=== PATIENT | male | born 1975 | race Two or more races ===

== ENCOUNTER 2020-03-13 13:59 | Inpatient (IN) | payer MEDICAID, OTHER ==
[~2020-03-13] VITALS: Ht 172.7 cm; Wt 74.9 kg
[2020-03-13] MEDS ORDERED: SODIUM CHLORIDE 0.9% 1,000 ML IVB ONE (14:54)
[2020-03-13 16:15] LABS: Basophils # (auto) 0 10 ^3/uL (0-0.2); Eosinophils # (auto) 0 10 ^3/uL (0-0.8); Hematocrit 25.6 % (41.0-53.0); Hemoglobin 8.3 g/dL (13.5-17.5); Monocytes # (auto) 0.2 10 ^3/uL (0-1.3); Neutrophils # (auto) 0.8 10 ^3/uL (1.6-8.6)
[2020-03-13 16:17] LABS: Basophils % (auto) 0.9 % (0.0-2.0); Eosinophils % (auto) 1.9 % (0.0-7.0); Lymphocytes # (auto) 0.4 10 ^3/uL (0.4-5.4); Lymphocytes % (auto) 28.6 % (10.0-50.0); Mean Corpuscular Hemoglobin 30.1 pg (28.0-32.0); Mean Corpuscular Hgb Conc. 32.3 g/dL (32.0-36.0); Mean Corpuscular Volume 93.1 fL (80.0-100.0); Monocytes % (auto) 14.4 % (0.0-12.0); Neutrophils % (auto) 54.2 % (37.0-80.0); Platelet Count (auto) 64 10^3/uL (140-450); Red Blood Cells 2.75 10^6/uL (4.5-5.90)
[2020-03-13 16:26] LABS: White Blood Cell 1.5 10^3/uL (4.4-10.8)
[2020-03-13 16:31] LABS: Albumin 2.6 g/dL (3.4-5.0); Anion Gap 6 (5-15); Blood Alcohol < 3.0 mg/dL (0-5); Blood Urea Nitrogen 14 mg/dL (7-18); Carbon Dioxide 22 mmol/L (21-32); Chloride 112 mmol/L (98-107); Glucose 98 mg/dL (74-106); Magnesium 1.8 mg/dL (1.6-2.6); Potassium 3.7 mmol/L (3.5-5.1); Sodium 140 mmol/L (136-145)
[2020-03-13 16:34] LABS: Alanine Aminotransferase 20 U/L (16-61); Alkaline Phosphatase 172 U/L (45-117); Aspartate Aminotransferase 31 U/L (15-37); BUN/Creatinine Ratio 11.8; Bilirubin, Total 1.4 mg/dL (0.2-1.0); GFR African American 86 mL/min; GFR Non-African American 71 mL/min; Total Protein 6.7 g/dL (6.4-8.2)
[2020-03-13 16:48] LABS: INR 1.4 (0.9-1.15); Partial Thromboplastin Time 29.4 sec (23.0-31.2)
[2020-03-13] MEDS ORDERED: LORazepam 2MG/ML-1ML VIAL ONE (18:08)
[2020-03-13] MEDS: LORazepam 2MG/ML-1ML VIAL IV ONE ×2 (18:16→18:36)
[2020-03-13] MEDS ORDERED: ONDANSETRON HCL 4 MG/2 ML VIAL IV PRN (20:30)
[2020-03-13] MEDS ORDERED: ACETAMINOPHEN 325 MG TAB PO PRN (20:30)
[2020-03-13] MEDS ORDERED: TEMAZEPAM 15 MG CAP PO PRN (20:30)
[2020-03-13] MEDS ORDERED: DOCUSATE SOD 100 MG CAP PO PRN (20:30)
[2020-03-13] MEDS: SODIUM CHLORIDE 0.9% 1,000 ML IV SCH (22:32)
[2020-03-14] MEDS: LORazepam 2MG/ML-1ML VIAL IV PRN ×2 (01:30→03:39)
[2020-03-14] MEDS ORDERED: METOPROLOL TARTRATE 1MG/1ML-5ML VIAL IV ONE (02:00)
[2020-03-14 06:01] LABS: Basophils # (auto) 0 10 ^3/uL (0-0.2); Eosinophils # (auto) 0 10 ^3/uL (0-0.8); Hematocrit 25.6 % (41.0-53.0); Monocytes # (auto) 0.3 10 ^3/uL (0-1.3); Nucleated Red Blood Cells % 0.1 %; White Blood Cell 5.4 10^3/uL (4.4-10.8)
[2020-03-14 06:03] LABS: Basophils % (auto) 0.2 % (0.0-2.0); Hemoglobin 7.9 g/dL (13.5-17.5); Lymphocytes # (auto) 0.3 10 ^3/uL (0.4-5.4); Mean Corpuscular Hemoglobin 30.5 pg (28.0-32.0); Mean Corpuscular Hgb Conc. 30.8 g/dL (32.0-36.0); Mean Corpuscular Volume 99.1 fL (80.0-100.0); Monocytes % (auto) 6.5 % (0.0-12.0); Neutrophils # (auto) 4.7 10 ^3/uL (1.6-8.6); Neutrophils % (auto) 88.3 % (37.0-80.0); Platelet Count (auto) 72 10^3/uL (140-450); Red Blood Cells 2.59 10^6/uL (4.5-5.90)
[2020-03-14 06:24] LABS: BUN/Creatinine Ratio 12.7
[2020-03-14 06:32] LABS: Red Cell Distribution Width 21.4 % (11.8-14.3)
[2020-03-14 06:34] LABS: Calcium 5.3 mg/dL (8.5-10.1); Potassium 2.8 mmol/L (3.5-5.1)
[2020-03-14] MEDS ORDERED: POTASSIUM CHL 20MEQ/100ML 100 ML IV STA (08:23)
[2020-03-14] MEDS ORDERED: CALCIUM GLUC 4.65meq/50ml D5AE 50 ML IV ONE (08:30)
[2020-03-14] MEDS ORDERED: POTASSIUM CHL 20MEQ/100ML 100 ML IV ONE (10:15)
--- NOTE | 2020-03-14 11:00 | NUR ---
Telemetry admit from ER DO IGNACIO admitted to Telemetry unit after SBAR received. Patient resting in bed with eyes closed; respirations even and unlabored, no distress noted. Patient did not open eyes to verbal or to light painful stimulation. MD aware. Patient now on continuous telemetry monitoring and weighed by bed scale. Fall precautions in place with bed alarm on and call light within reach.
--- NOTE | 2020-03-14 11:05 | NUR ---
Seizure precautions in place per MD order Side rails padded. HOB >30 degrees. Suctioning set up at bedside.
--- NOTE | 2020-03-14 11:30 | NUR ---
swimming pool service technician at bedside
--- NOTE | 2020-03-14 12:00 | NUR ---
ELECTROENCEPHALOGRAM EEG COMPLETED AT BEDSIDE. PRIMARY RN KIAH TAYLOR.
--- NOTE | 2020-03-14 12:19 | NUR ---
was at bedside - Dr. Carter POC discussed with this RN.
--- NOTE | 2020-03-14 12:42 | NUR ---
GISELA discussed with Dr. Lewis
[2020-03-14 12:47] VITALS: BP 104/39
[2020-03-14] MEDS: SODIUM CHLORIDE 0.9% 1,000 ML IV SCH ×2 (13:10→18:46)
--- NOTE | 2020-03-14 13:30 | NUR ---
Urine specimen collected & sent to lab per MD order Urine specimen collected from navas catheter with aseptic technique.
[2020-03-14 13:42] LABS: Urine Bacteria FEW /hpf (None Seen); Urine Blood 1+ /uL (Negative); Urine Hyaline Cast FEW /lpf (0 - 2); Urine Specific Gravity 1.011 (1.001-1.035); Urine WBC 1 /hpf (0 - 3)
[2020-03-14 13:56] LABS: Alcohol, Urine < 3.0 mg/dL (0-10); Amphetamine Screen, Urine NEGATIVE (NEGATIVE); Barbiturate Scree,Urine NEGATIVE (NEGATIVE); Benzodiazephine Screen, Urine POSITIVE (NEGATIVE); Cannabinoid Screen, Urine NEGATIVE (NEGATIVE); Cocaine Screen, Urine NEGATIVE (NEGATIVE); Phencyclidine Screen, Urine NEGATIVE (NEGATIVE)
[2020-03-14 14:04] LABS: Opiate Scree,Urine NEGATIVE (NEGATIVE)
--- NOTE | 2020-03-14 14:45 | NUR ---
Patient resting in bed with eyes closed - repositioned for comfort Patient did not open eyes or respond to verbal commands during repositioning. Respirations even and unlabored, no distress noted. Saliva noted at the corner of patient's mouth. Suctioning provided. Patient did not open mouth to allow RN to suction. Call light within reach. Bed alarm on for safety. Seizure precautions in place.
--- NOTE | 2020-03-14 16:58 | NUR ---
Patient opened eyes and is looking around room Patient does not answer assessment questions. Patient is not following verbal commands. Safety instructions provided to the patient. Patient did not verbalize understanding. Patient stared at RN. Reoriented patient to surroundings and time. Fall precautions in place with bed in lowest locked position with call light within reach; bed alarm on for safety.
[2020-03-14 17:00] VITALS: BP 99/65
--- NOTE | 2020-03-14 18:53 | NUR ---
Closing note Patient resting in bed with eyes closed; respirations even and unlabored, no distress noted. Fall and seizure precautions are in place. Call light within reach, bed alarm on for safety. Patient makes grunting noise with painful stimuli. Patient has been non-verbal with this RN.
--- NOTE | 2020-03-14 19:28 | NUR ---
Care endorsed to TALON Kelley.
--- NOTE | 2020-03-14 19:40 | NUR ---
Opening Shift Note Assumed care of patient, asleep, not responsive to name. Seizure precautions in place. No S/S of distress/SOB or pain. Respirations even and unlabored. On 3L oxygen via nasal cannula. Rivas catheter patent and draining to gravity. Bed in lowest locked position, side rails up x2, call light within reach. Instructed on POC and to call for assist PRN, will continue to monitor for changes Q1hr and PRN.
[2020-03-14 20:00] VITALS: BP 112/73
[2020-03-14 22:00] VITALS: BP 112/73
[2020-03-15] MEDS: SODIUM CHLORIDE 0.9% 1,000 ML IV SCH ×2 (05:50→10:15)
[2020-03-15 06:00] VITALS: BP 129/88
[2020-03-15 06:19] LABS: Basophils # (auto) 0 10 ^3/uL (0-0.2); Basophils % (auto) 0.4 % (0.0-2.0); Eosinophils # (auto) 0 10 ^3/uL (0-0.8); Hemoglobin 9.3 g/dL (13.5-17.5); Lymphocytes # (auto) 0.4 10 ^3/uL (0.4-5.4); Lymphocytes % (auto) 9.3 % (10.0-50.0); Mean Corpuscular Hemoglobin 30.1 pg (28.0-32.0); Mean Corpuscular Volume 93.9 fL (80.0-100.0); Monocytes # (auto) 0.5 10 ^3/uL (0-1.3); Monocytes % (auto) 11.2 % (0.0-12.0); Neutrophils # (auto) 3.3 10 ^3/uL (1.6-8.6); Neutrophils % (auto) 79.1 % (37.0-80.0); Platelet Count (auto) 81 10^3/uL (140-450); Red Blood Cells 3.09 10^6/uL (4.5-5.90); White Blood Cell 4.2 10^3/uL (4.4-10.8)
[2020-03-15 06:27] LABS: Red Cell Distribution Width 21.1 % (11.8-14.3)
[2020-03-15 06:40] LABS: Potassium 3.8 mmol/L (3.5-5.1)
[2020-03-15 06:47] LABS: BUN/Creatinine Ratio 12.6
--- NOTE | 2020-03-15 08:00 | NUR ---
Morning note Patient resting in bed with eyes closed; respirations even and unlabored, no distress noted. Patient did not open eyes to verbal or to light painful stimulation. MD aware. Fall precautions in place with bed alarm on and call light within reach.
[2020-03-15 09:00] VITALS: BP 142/84
--- NOTE | 2020-03-15 09:30 | NUR ---
POC discussed with Dr. Sanya MARIA aware of patient's mental status and reported EEG result. Informed MD of safety concerns RE: diet. verbalized understanding. Order received and read back to verify.
--- NOTE | 2020-03-15 09:46 | NUR ---
Medication not available - called pharmacy Kenighatra JAVAD not available. Called pharmacy to notify. Medication to be sent to the unit per pharmacist.
--- NOTE | 2020-03-15 09:50 | NUR ---
was at bedside - Dr. Carter POC discussed with this RN.
--- NOTE | 2020-03-15 10:16 | NUR ---
Patient opened eyes and moved all 4 extremities Reoriented patient. Patient mumbled. Unable to understand what patient stated. Patient repositioned self and closed eyes again. Fall precautions in place with call light within reach and bed alarm on for safety.
--- NOTE | 2020-03-15 11:00 | NUR ---
Patient removed supplemental oxygen Education provided to patient on the need for supplemental oxygen through translation. Supplemental oxygen placed back on patient. Fall precautions in place with call light within reach; bed alarm on for safety.
[2020-03-15 13:00] VITALS: BP 141/91
--- NOTE | 2020-03-15 14:07 | NUR ---
Patient transferred to room 277A for safety Bed alarm on with call light within reach. All of patient's belongings transferred with the patient.
[2020-03-15] MEDS: LORazepam 2MG/ML-1ML VIAL IV PRN (14:22)
--- NOTE | 2020-03-15 14:27 | NUR ---
PRN IV Ativan administered per MD order for seizure-like activity neurodiagnostic tech was in process of applying electrodes to patient's head when seizure-like activity was noted by tech and this RN. Patient was minimally moving head in a back & forth motion while grinding his teeth. neurodiagnostic tech contacted Dr. Franklin to clarify if PRN IV Ativan was to be administered prior to EEG. MD instructed RN to administer medication per order. After administration of medication, patient was replying to questions from this RN and neurodiagnostic tech. Patient reports he does grind his teeth and he reports a history of seizures. Patient started to mumble when replying if he takes medication for seizures. Patient's eyes remained closed; respirations even and unlabored, no distress.
--- NOTE | 2020-03-15 14:30 | NUR ---
ELECTROENCEPHALOGRAM UNABLE TO COMPLETE REPEAT EEG. UPON SETUP, PATIENT REMOVED LEADS, GOWN, AND TRIED TO GET UP FROM BED. PRIMARY RN KIAH TAYLOR.
--- NOTE | 2020-03-15 14:37 | NUR ---
RE: Behavior Patient pulled electrodes off of head, attempted to remove IV access and started to remove hospital gown per technical systems architect. Patient would not allow tech to reapply electrodes. Tech to notify Dr. Franklin.
--- NOTE | 2020-03-15 14:40 | NUR ---
IVF held for safety - patient grabbing at IV line and attempting to exit the bed.
--- NOTE | 2020-03-15 15:30 | NUR ---
RE: Behavior Be alarm sounded. Patient attempting to exit the bed. Patient removed telemonitor, hospital gown and was attempting to remove IV access. Patient reoriented to surrounds and situation. Unable to understand what patient is stating d/t patient mumbling. Patient returned to supine position with no complications. Bed alarm on for safety. Call light within reach. Notified charger. investigation division captain verbalized understanding.
--- NOTE | 2020-03-15 16:09 | NUR ---
Contacted RE: elevated temperature Updated Dr. Segundo of patient's elevated temperature and seizure-like activity. MD verbalized understanding. MD to place order.
[2020-03-15] MEDS ORDERED: ACETAMINOPHEN IV 1000 MG/100ML (10MG/ML) IV ONE (16:15)
[2020-03-15 16:33] VITALS: BP 152/87
--- NOTE | 2020-03-15 16:46 | NUR ---
RE: Elevated temperature/pharmacy This RN notified by pharmacist that IV Tylenol cannot be administered for fever on this unit. That information is from pharmacy student per pharmacist. Pharmacist has relayed information to Dr. Segundo. This RN instructed by pharmacist to obtain approval for IV Tylenol to be administered for fever on this unit from Dr. Kearns. Temperature reassessed. 100.[address] Segundo updated on reassessment temperature. Ordered to continue to keep cooling measures in place and continue to monitor VS per md order. IV Tylenol administration to be reevaluated at a later time if fever develops again per Dr. Segundo.
--- NOTE | 2020-03-15 18:08 | NUR ---
Patient removed IV access to RHA Catheter intact. No bleeding noted. Patient attempting to exit the bed. Reoriented patient. Patient mumbled. Unable to understand patient. Bed alarm on for safety. Call light within reach. IV access to the LHA secured with mesh netting.
--- NOTE | 2020-03-15 18:41 | NUR ---
Patient removed telemonitor & attempting to remove IV access to LHA Patient removed supplemental oxygen. Mesh netting in place to the LHA. Soft mittens placed to bilateral hands. Reoriented patient to situation and surroundings. Patient stated "K". Supplemental oxygen placed back on patient. Respirations even and unlabored, no distress noted. Call light within reach; bed alarm on for safety. Staff member at bedside for safety.
--- NOTE | 2020-03-15 19:10 | NUR ---
Care endorsed to TALON Figueroa.
--- NOTE | 2020-03-15 19:50 | NUR ---
OPEN NOTE assumed care of pt, upon entering room pt has sitter at bedside. pt on 2L no distress noted. pt eyes are closed, breathing is even and unlabored. pt does not respond to verbal cues, but does open eyes spontaneously. pt does not appear to be in any discomfort. pt has navas in place, secured, below the waist and draining. pt rails are padded. call light in reach. bed locked, low and 2x rails up. this nurse to round q1hr and prn.
[2020-03-15 21:53] VITALS: BP 135/83
[2020-03-16 04:51] VITALS: BP 148/82
[2020-03-16 05:35] LABS: Basophils # (auto) 0 10 ^3/uL (0-0.2); Basophils % (auto) 0.3 % (0.0-2.0); Eosinophils # (auto) 0 10 ^3/uL (0-0.8); Eosinophils % (auto) 0.8 % (0.0-7.0); Hematocrit 30.6 % (41.0-53.0); Hemoglobin 10.1 g/dL (13.5-17.5); Lymphocytes # (auto) 0.7 10 ^3/uL (0.4-5.4); Lymphocytes % (auto) 16.1 % (10.0-50.0); Mean Corpuscular Hemoglobin 30.5 pg (28.0-32.0); Mean Corpuscular Hgb Conc. 32.9 g/dL (32.0-36.0); Mean Corpuscular Volume 92.5 fL (80.0-100.0); Monocytes # (auto) 0.5 10 ^3/uL (0-1.3); Monocytes % (auto) 12.7 % (0.0-12.0); Neutrophils % (auto) 70.1 % (37.0-80.0); Nucleated Red Blood Cells % 0.1 %; Platelet Count (auto) 89 10^3/uL (140-450); Red Blood Cells 3.31 10^6/uL (4.5-5.90); White Blood Cell 4.2 10^3/uL (4.4-10.8)
[2020-03-16 05:52] LABS: Red Cell Distribution Width 20.9 % (11.8-14.3)
[2020-03-16 05:57] LABS: Potassium 3.8 mmol/L (3.5-5.1)
[2020-03-16 06:01] LABS: BUN/Creatinine Ratio 11.1; Calcium 8.2 mg/dL (8.5-10.1)
--- NOTE | 2020-03-16 07:50 | NUR ---
Morning note Patient resting in bed with even and unlabored respirations, no distress noted. Instructed patient on POC, fall precautions and to call for assistance as needed. Patient unable to comprehend due to mental status; patient is A&O to self. Fall precautions in place with call light within reach; bed alarm on for safety. Staff member at bedside for safety.
[2020-03-16 09:00] VITALS: BP 139/74
--- NOTE | 2020-03-16 09:10 | NUR ---
Medication not available - called pharmacy Alvara JAVAD not available. Called pharmacy to notify. Medication to be sent to the unit per pharmacist per sissy Meeks.
--- NOTE | 2020-03-16 10:13 | NUR ---
Complete bed linen change - cooling measures in place Patient did not follow verbal commands. Patient did not assist staff with turning process. Patient's speech is inappropriate to situation and surroundings. Reoriented patient to situation and surroundings. Soft mitten to the LHA removed. Soft mitten to the RHA remains in place. Respirations even and unlabored, no distress noted. Staff member at bedside for safety.
--- NOTE | 2020-03-16 11:16 | NUR ---
Patient resting in bed with eyes closed Respirations even and unlabored, no distress noted. No teeth grinding heard. No body or head shaking noted. Call light within reach. Bed alarm on for safety.
--- NOTE | 2020-03-16 11:34 | NUR ---
POC discussed with Dr. Segundo Addendum: 03/16/20 at 1135 by Laura De Santiago RN Notified MD of patient's elevated temperature and cooling measures in place. MD verbalized understanding.
[2020-03-16 13:00] VITALS: BP 134/91
--- NOTE | 2020-03-16 13:10 | NUR ---
ASSUMED CARE ASSUMED CARE OF PATIENT, REPORT RECEIVED FROM TALON DUPONT
--- NOTE | 2020-03-16 13:25 | NUR ---
Care endorsed to TALON Weaver. Patient resting in bed with even and unlabored respirations, no distress noted. Fall precautions in place with call light within reach; bed alarm on for safety. Staff member at bedside for safety.
--- NOTE | 2020-03-16 13:46 | NUR ---
ELECTROENCEPHALOGRAM UNABLE TO COMPLETE EEG. PT UNCOOPERATIVE AND NOT FOLLOWING DIRECTIONS TO BE STILL FOR TEST.
[2020-03-16] MEDS: LORazepam 2MG/ML-1ML VIAL IV PRN (14:39)
[2020-03-16] MEDS: SODIUM CHLORIDE 0.9% 1,000 ML IV SCH (15:10)
--- NOTE | 2020-03-16 16:45 | NUR ---
TEMP PATIENT RUNNING TEMP 101.1. EMAR HAS TYLENOL PO. PATIENT NPO. SPOKE WITH DR SORENSEN. NEW ORDERS RECEIVED/WILL CARRY OUT. WILL CONTINUE TO MONITOR
[2020-03-16 17:00] VITALS: BP 149/85
--- NOTE | 2020-03-16 17:23 | NUR ---
COVID [facility] COVID SWAB WALKED TO LAB BY TALON HOUSTON PER PROTOCOL
[2020-03-16] MEDS: ACETAMINOPHEN 325 MG RECT SUPP PR PRN (17:35)
--- NOTE | 2020-03-16 18:30 | NUR ---
TEMP REASSESSMENT 99.6. COOLING MEASURES IN PLACE. WILL CONTINUE TO MONITOR
--- NOTE | 2020-03-16 19:49 | NUR ---
open note assumed care of pt, upon entering room pt awake and alert. pt on 2L nc breathing is even and unlabored, no s/s distress observed. sitter at bedside. pt nodded to indicate 'yes' when asked by this nurse if he was doing okay. pt oriented to this nurse, and updated on plan of care, to which he had no response. pt has navas in place, secured, below the waist and draining. pt bed locked, low and 2x padded rails up. call light in reach, this nurse to round q1hr and prn. sitter and pt encouraged to call as needed.
[2020-03-16 22:00] VITALS: BP 134/84
--- NOTE | 2020-03-16 22:30 | NUR ---
Temp 100.3f, cooling measures instituted. pt does not appear to be in any distress.
--- NOTE | 2020-03-16 23:30 | NUR ---
temp 100.1f no distress noted or expressed.
--- NOTE | 2020-03-17 01:28 | NUR ---
temp 100.6f tylenol suppository administered. no distress noted or expressed. will continue to monitor.
[2020-03-17] MEDS: ACETAMINOPHEN 325 MG RECT SUPP PR PRN (01:30)
[2020-03-17 05:00] VITALS: BP 137/86
[2020-03-17 06:38] LABS: Basophils # (auto) 0 10 ^3/uL (0-0.2); Basophils % (auto) 0.4 % (0.0-2.0); Eosinophils # (auto) 0 10 ^3/uL (0-0.8); Eosinophils % (auto) 1.2 % (0.0-7.0); Hematocrit 30.6 % (41.0-53.0); Hemoglobin 9.8 g/dL (13.5-17.5); Lymphocytes # (auto) 0.8 10 ^3/uL (0.4-5.4); Lymphocytes % (auto) 22.2 % (10.0-50.0); Mean Corpuscular Hemoglobin 29.8 pg (28.0-32.0); Mean Corpuscular Hgb Conc. 32.1 g/dL (32.0-36.0); Monocytes # (auto) 0.5 10 ^3/uL (0-1.3); Monocytes % (auto) 13.8 % (0.0-12.0); Neutrophils # (auto) 2.2 10 ^3/uL (1.6-8.6); Neutrophils % (auto) 62.4 % (37.0-80.0); Nucleated Red Blood Cells % 0.1 %; Platelet Count (auto) 79 10^3/uL (140-450); Red Blood Cells 3.29 10^6/uL (4.5-5.90); White Blood Cell 3.5 10^3/uL (4.4-10.8)
[2020-03-17 06:59] LABS: BUN/Creatinine Ratio 12.6; Potassium 3.9 mmol/L (3.5-5.1)
--- NOTE | 2020-03-17 07:47 | NUR ---
Morning note Patient resting in bed with even and unlabored respirations, no distress noted. Instructed patient on POC, fall precautions and to call for assistance as needed. Patient unable to comprehend due to mental status; patient is A&O to self. Fall precautions in place with call light within reach; bed alarm on for safety. Seizure precautions in place. Staff member at bedside for safety.
[2020-03-17] MEDS: SODIUM CHLORIDE 0.9% 1,000 ML IV SCH (07:50)
[2020-03-17 09:00] VITALS: BP 29/74
--- NOTE | 2020-03-17 09:20 | NUR ---
POC discussed with Dr. Segundo Diet is to be advanced if patient follows verbal commands.
--- NOTE | 2020-03-17 09:57 | NUR ---
RE: Diet/swallowing Apple sauce offered to the patient per MD order. Patient consumed apple sauce with no complications noted. Patient consumed 100% of contents. Strict aspiration precautions in place. Diet to be advanced per MD order.
--- NOTE | 2020-03-17 10:59 | NUR ---
Patient resting in bed with eyes closed respirations even and unlabored, no distress noted. Fall precautions in place with call light within reach; bed alarm on for safety. Staff member at bedside for safety. Soft mitten in place to the A.
[2020-03-17 13:00] VITALS: BP 117/71
[2020-03-17] MEDS: LORazepam 2MG/ML-1ML VIAL IV PRN ×2 (14:03→21:36)
--- NOTE | 2020-03-17 14:05 | NUR ---
PRN Ativan administered for seizure-like activity Seizure-like activity noted during patient rounds. Patient resting in bed with eyes closed, head mildly shaking back & forth and the sound of teeth grinding noted. Patient did not open eyes to name. Respirations even and unlabored, no distress noted. Patient placed on 2 LPM NC. Seizure precautions in place.
--- NOTE | 2020-03-17 14:10 | NUR ---
Est energy needs 1903-4705 kcal (25-27 kcal/kg BW 75.9kg) Est protein needs 61-76g (0.8-1g/kg BW 75.9kg) Will reassess prn Addendum: 03/17/20 at [address] Amended: Links added.
--- NOTE | 2020-03-17 14:23 | NUR ---
Patient resting in bed with eyes closed Respirations even and unlabored on 2 lpm NC, no distress noted. No oral trauma noted. Call light within reach with bed alarm on for safety. Staff member at bedside for safety.
--- NOTE | 2020-03-17 17:22 | NUR ---
Repositioned patient - patient did not answer questions Patient opened eyes to name. Patient did not respond to verbal assessment questions. Respirations even and unlabored on 2 LPM NC, no distress noted. Staff member at bedside for safety.
[2020-03-17 17:35] VITALS: BP 142/79
--- NOTE | 2020-03-17 18:41 | NUR ---
Closing note Patient resting in bed with eyes closed; respirations even and unlabored, no distress noted. Fall and seizure precautions are in place. Call light within reach, bed alarm on for safety. Staff member at bedside for safety.
--- NOTE | 2020-03-17 19:15 | NUR ---
Care endorsed TALON Ace.
--- NOTE | 2020-03-17 19:40 | NUR ---
Opening Shift Note Assumed care of patient, awake and alert to self able tp open his his. bilateral chest rise and fall. No S/S of distress/SOB or pain. Instructed on POC and to call for assist PRN, will continue to monitor for changes Q1hr and PRN. Sitter at bedside for patient safety.Seizure and fall precautions in place.
[2020-03-17 20:00] LABS: Basophils # (auto) 0 10 ^3/uL (0-0.2); Basophils % (auto) 0.5 % (0.0-2.0); Eosinophils # (auto) 0.1 10 ^3/uL (0-0.8); Eosinophils % (auto) 2.7 % (0.0-7.0); Hematocrit 32.9 % (41.0-53.0); Hemoglobin 10.3 g/dL (13.5-17.5); Lymphocytes # (auto) 0.9 10 ^3/uL (0.4-5.4); Lymphocytes % (auto) 23.5 % (10.0-50.0); Mean Corpuscular Hemoglobin 29.4 pg (28.0-32.0); Mean Corpuscular Hgb Conc. 31.4 g/dL (32.0-36.0); Mean Corpuscular Volume 93.6 fL (80.0-100.0); Monocytes # (auto) 0.6 10 ^3/uL (0-1.3); Monocytes % (auto) 14.9 % (0.0-12.0); Neutrophils # (auto) 2.3 10 ^3/uL (1.6-8.6); Neutrophils % (auto) 58.4 % (37.0-80.0); Nucleated Red Blood Cells % 0.2 %; Platelet Count (auto) 93 10^3/uL (140-450); Red Blood Cells 3.52 10^6/uL (4.5-5.90)
[2020-03-17 20:11] LABS: Red Cell Distribution Width 20.6 % (11.8-14.3)
[2020-03-17 20:15] LABS: Calcium 8.6 mg/dL (8.5-10.1); Potassium 3.6 mmol/L (3.5-5.1)
[2020-03-17 20:17] LABS: BUN/Creatinine Ratio 11.8
--- NOTE | 2020-03-17 21:36 | NUR ---
Seizure Was called into room due to patient having a seizure. Seizure noted Patient resting in bed with eyes staring to his right head mildly shaking back & forth and the sound of teeth grinding noted. Respirations even and unlabored, no distress noted. Ativan administered.Patient placed on 2 LPM NC. Seizure precautions in place. sitter at bedside.
[2020-03-17] MEDS ORDERED: PHENYTOIN DILANTIN IV ONE (21:45)
[2020-03-17] MEDS ORDERED: SODIUM CHL 0.9% IV ONE (21:45)
[2020-03-17 22:00] VITALS: BP 140/93
--- NOTE | 2020-03-17 22:06 | NUR ---
patient rounds Respirations even and unlabored on 2 lpm NC, no distress noted.No oral trauma noted after seizure. Patient sitting up and mumbling.Call light within reach with bed alarm on for safety. Seizure precautions in place. Staff member at bedside for safety.
[2020-03-18] MEDS: SODIUM CHLORIDE 0.9% 1,000 ML IV SCH ×2 (00:30→17:10)
[2020-03-18 05:00] VITALS: BP 129/61
--- NOTE | 2020-03-18 05:18 | NUR ---
100.0 fever cooling measures initiated
[2020-03-18] MEDS: PHENYTOIN SODIUM 50 MG/ML 2ML VIAL IV SCH ×3 (05:30→21:46)
--- NOTE | 2020-03-18 06:51 | NUR ---
patient rounds patient resting in bed. no signs of sob distress or pain. iv is intact and patent. navas is intact and draining. sitter at bedside. seizure and fall precautions in place. call light within reach and bed in low position.
--- NOTE | 2020-03-18 07:14 | NUR ---
report given to dayshift rn patient shows no signs of sob distress or pain
--- NOTE | 2020-03-18 07:30 | NUR ---
Opening Shift Note Assumed patient care from ISELA HANLEY. Patient currently laying on left side. No signs of distress at this time. Patient is drowsy but opens eyes to name and mumbles and is currently unintelligible. Safety precautions, including seizure precautions in place, sitter at bedside. Will continue to monitor. Addendum: 03/18/20 at 1115 by CARLOS POWELL RN RN Currently laying on right side.
[2020-03-18 09:00] VITALS: BP 148/85
--- NOTE | 2020-03-18 09:15 | NUR ---
at Bedside Dr. Segundo at bedside. Patient is currently awake and alert but currently does not respond appropriately to questions. Safety/seizure precautions in place, sitter at bedside. Patient repositioned to left side.
--- NOTE | 2020-03-18 10:20 | NUR ---
assessment Patient is a 44 year old male who is confused. There is no emergency contact on his face sheet and no other prior admissions. I will continue to follow and wait for patients mentation to be better. Addendum: 03/18/20 at 1023 by Sandra QUIÑONES Amended: Links added.
--- NOTE | 2020-03-18 12:10 | NUR ---
Temperature Checked patient's temperature. Currently 100.3 degrees F, oral. Cooling measures applied. Will reassess.
--- NOTE | 2020-03-18 12:47 | NUR ---
Temperature Recheck Temperature currently 100.1 degrees F. Will continue with cooling measures and continue to monitor. Safety precautions in place. Sitter at bedside.
--- NOTE | 2020-03-18 12:55 | NUR ---
Temperature Recheck Temperature reassessed, currently 99.8 degrees F. Will continue with cooling measures and continue to monitor. Safety precautions in place, sitter at bedside.
[2020-03-18 13:00] VITALS: BP 145/78
[2020-03-18] MEDS: ACETAMINOPHEN 325 MG RECT SUPP PR PRN (14:29)
[2020-03-18 17:00] VITALS: BP 144/81
--- NOTE | 2020-03-18 19:04 | NUR ---
Patient Rounds Patient currently resting in bed, no signs of distress at this time. Safety precautions in place, sitter at bedside. Will continue to monitor.
--- NOTE | 2020-03-18 19:30 | NUR ---
Opening Shift Note Assumed care of patient, awake and alert. No S/S of distress/SOB or pain. Fall and seizure precautions in place. aspiration precautions in place. Instructed on POC and to call for assist PRN, will continue to monitor for changes Q1hr and PRN. bed in low position call light within reach. sitter at bedside
[2020-03-18] MEDS: LORazepam 2MG/ML-1ML VIAL IV PRN (20:11)
[2020-03-18] MEDS ORDERED: LORazepam 2MG/ML-1ML VIAL IV ONE (20:15)
[2020-03-18] MEDS ORDERED: LORazepam 2MG/ML-1ML VIAL IV PRN (20:15)
[2020-03-18 22:00] VITALS: BP 135/86
--- NOTE | 2020-03-18 22:00 | NUR ---
TEMPERATURE COOLING MEASURES INITIATED FOR TEMPERATURE OF 100.1
--- NOTE | 2020-03-18 23:00 | NUR ---
TEMPERATURE RECHECKED 97.9 FALL / SEIZURE AND ASPIRATION PRECAUTIONS IN PLACE. CALL LIGHT WITHIN REACH. SITTER AT BEDSIDE,
[2020-03-19 04:43] VITALS: BP 135/86
[2020-03-19] MEDS: PHENYTOIN SODIUM 50 MG/ML 2ML VIAL IV SCH ×3 (05:39→22:48)
[2020-03-19 06:03] LABS: Basophils # (auto) 0 10 ^3/uL (0-0.2); Basophils % (auto) 0.5 % (0.0-2.0); Eosinophils # (auto) 0.2 10 ^3/uL (0-0.8); Eosinophils % (auto) 4.8 % (0.0-7.0); Hemoglobin 10.4 g/dL (13.5-17.5); Lymphocytes # (auto) 0.7 10 ^3/uL (0.4-5.4); Mean Corpuscular Hemoglobin 30.2 pg (28.0-32.0); Mean Corpuscular Hgb Conc. 32.7 g/dL (32.0-36.0); Mean Corpuscular Volume 92.4 fL (80.0-100.0); Monocytes # (auto) 0.4 10 ^3/uL (0-1.3); Monocytes % (auto) 10.3 % (0.0-12.0); Neutrophils # (auto) 2.4 10 ^3/uL (1.6-8.6); Neutrophils % (auto) 64.4 % (37.0-80.0); Platelet Count (auto) 73 10^3/uL (140-450); Red Blood Cells 3.46 10^6/uL (4.5-5.90); White Blood Cell 3.7 10^3/uL (4.4-10.8)
[2020-03-19 06:18] LABS: Calcium 8.4 mg/dL (8.5-10.1); Potassium 3.5 mmol/L (3.5-5.1)
[2020-03-19 06:20] LABS: BUN/Creatinine Ratio 9.4
[2020-03-19 06:33] LABS: Red Cell Distribution Width 20.9 % (11.8-14.3)
--- NOTE | 2020-03-19 07:15 | NUR ---
Endorsed care to dayshift rn. patient resting in bed. no signs of sob distress or pain. endorsed care to dayshift rn for placement of new iv due to leaking. call light within reach , bed in low position, and sitter at bedside. fall, seizure, and aspiration precautions in place.
--- NOTE | 2020-03-19 07:30 | NUR ---
Opening Shift Note Assumed patient care from NOC RN. Patient currently resting in bed with eyes closed, respirations even and unlabored. No signs of distress at this time. Safety precautions in place, bed rails up x4 with seizure precautions in place and sitter at bedside. Bed in lowest position, will continue to monitor.
--- NOTE | 2020-03-19 08:02 | NUR ---
NEW IV New IV started on right hand, 24 gauge. Blood return noted, flushes easily. Patient tolerated well, no signs of distress.
[2020-03-19 08:53] VITALS: BP 139/81
--- NOTE | 2020-03-19 09:30 | NUR ---
at Station Dr. Segundo at station, discussing patient's plan of care.
[2020-03-19] MEDS: SODIUM CHLORIDE 0.9% 1,000 ML IV SCH (10:56)
--- NOTE | 2020-03-19 10:59 | NUR ---
Called Pharmacy Spoke with [facility] regarding drug interactions/contraindications. No contraindications. See EMAR
[2020-03-19] MEDS: LORazepam 2MG/ML-1ML VIAL IV PRN (11:00)
[2020-03-19 12:43] VITALS: BP 137/86
--- NOTE | 2020-03-19 13:14 | NUR ---
EEG- ELECTROENCEPHALOGRAM COMPLETED ON 03/19/2020 @ 11:45.
--- NOTE | 2020-03-19 19:15 | NUR ---
Opening shift note Assumed care of patient from day RNMaggy. Patient sitting up in bed with eyes open. Patient responded to his name with mumbling but would not make eye contact. Patient began trying to pull himself out of the bed without responding to questions or commands to stay in bed. As patient relaxed and sat back down he mumbled several sentences that were unintelligible and closed his eyes. Patient placed in position of comfort, sitter bedside. Rivas draining and patent. Bed in lowest locked position with 4 side rails up. Seizure precautions in place. Will continue to monitor.
[2020-03-19 21:00] VITALS: BP 128/82
[2020-03-20 05:00] VITALS: BP 129/79
[2020-03-20] MEDS: PHENYTOIN SODIUM 50 MG/ML 2ML VIAL IV SCH ×3 (06:45→22:40)
[2020-03-20] MEDS: SODIUM CHLORIDE 0.9% 1,000 ML IV SCH (06:45)
[2020-03-20 07:05] LABS: Basophils # (auto) 0 10 ^3/uL (0-0.2); Basophils % (auto) 0.5 % (0.0-2.0); Eosinophils # (auto) 0.2 10 ^3/uL (0-0.8); Hemoglobin 9.6 g/dL (13.5-17.5); Lymphocytes % (auto) 27.2 % (10.0-50.0); Mean Corpuscular Hemoglobin 30.2 pg (28.0-32.0); Mean Corpuscular Volume 91.4 fL (80.0-100.0); Monocytes # (auto) 0.3 10 ^3/uL (0-1.3); Monocytes % (auto) 7.9 % (0.0-12.0); Neutrophils # (auto) 2.2 10 ^3/uL (1.6-8.6); Neutrophils % (auto) 58.4 % (37.0-80.0); Nucleated Red Blood Cells % 0.2 %; Platelet Count (auto) 78 10^3/uL (140-450); Red Blood Cells 3.18 10^6/uL (4.5-5.90); White Blood Cell 3.7 10^3/uL (4.4-10.8)
[2020-03-20 07:08] LABS: Red Cell Distribution Width 20.8 % (11.8-14.3)
--- NOTE | 2020-03-20 07:30 | NUR ---
Opening Shift Note Assumed patient care from NOC RN, Beatriz. Patient currently sitting up in bed, high hernández's position for breakfast. Jess Saunders at bedside assisting patient with breakfast. No signs of distress at this time, respirations even and unlabored. Safety precautions in place, seizure precautions in place, including bed rails up x4. Will continue to monitor.
[2020-03-20 07:38] LABS: Calcium 7.8 mg/dL (8.5-10.1); Potassium 3.6 mmol/L (3.5-5.1)
[2020-03-20 09:00] VITALS: BP 125/77
--- NOTE | 2020-03-20 12:59 | NUR ---
Nutrition Followup Notes Pt wt is 75.7 kg Pt was sleeping with no relatives at bedside when rounded this morning. Pt is with a Pureed diet, appetite is poor aeb ave 28% PO intake over 7 meals. Will continue to monitor PO status, skin status, pertinent labs and weight trends. Will f/u in 3-5 days. Est energy needs 2965-1689 kcal (25-27 kcal/kg BW 75.9kg) Est protein needs 61-76g (0.8-1g/kg BW 75.9kg) Will reassess prn LABS: Ca 7.8 L, Alb 2.6 L GI: Pt has no record of a BM since 03/14 per RN doc BS: 14 mod risk Refer to wound assessment report for full details. PES: Overweight r/t caloric intake in excess of needs aeb pt with a BMI of 25.4kg/m2 Comments 1) Continue to monitor pt po intake, labs, skin 2) refer pt to [facility] on DC 3) Continue current plan of care Monitor diet tolerance and intake to assess possible need for oral supplement
[2020-03-20 13:00] VITALS: BP 113/66
[2020-03-20 17:00] VITALS: BP 108/74
--- NOTE | 2020-03-20 19:20 | NUR ---
Opening shift note Assumed care of patient. Patient resting with eyes closed, respirations even and non-labored with no s/s of distress. Seizure precautions in place. Rivas patent draining clear yellow urine. Sitter bedside. Bed in lowest locked position with 3 side rails up. Call light beside patient. Will continue to monitor Q1hr and PRN.
--- NOTE | 2020-03-20 19:45 | NUR ---
Closing Shift Note Report given to ISELA Henderson.
[2020-03-20 22:00] VITALS: BP 120/74
[2020-03-21 05:00] VITALS: BP 126/78
[2020-03-21] MEDS: PHENYTOIN SODIUM 50 MG/ML 2ML VIAL IV SCH ×3 (06:14→23:54)
--- NOTE | 2020-03-21 06:15 | NUR ---
Possible seizures Noted facial twitching at 0610 while administering phenytoin to patient. Hospitalist paged.
[2020-03-21 06:35] LABS: Basophils # (auto) 0 10 ^3/uL (0-0.2); Basophils % (auto) 0.6 % (0.0-2.0); Eosinophils # (auto) 0.2 10 ^3/uL (0-0.8); Eosinophils % (auto) 6.8 % (0.0-7.0); Hematocrit 29.7 % (41.0-53.0); Hemoglobin 9.7 g/dL (13.5-17.5); Lymphocytes % (auto) 28.8 % (10.0-50.0); Mean Corpuscular Hemoglobin 30.1 pg (28.0-32.0); Mean Corpuscular Hgb Conc. 32.6 g/dL (32.0-36.0); Mean Corpuscular Volume 92.3 fL (80.0-100.0); Monocytes # (auto) 0.3 10 ^3/uL (0-1.3); Monocytes % (auto) 10.1 % (0.0-12.0); Neutrophils # (auto) 1.8 10 ^3/uL (1.6-8.6); Neutrophils % (auto) 53.7 % (37.0-80.0); Nucleated Red Blood Cells % 0.2 %; Platelet Count (auto) 75 10^3/uL (140-450); Red Blood Cells 3.22 10^6/uL (4.5-5.90); White Blood Cell 3.4 10^3/uL (4.4-10.8)
--- NOTE | 2020-03-21 06:40 | NUR ---
Patient facial twitching subsiding Sitter bedside, facial twitching no longer apparent. Will continue to monitor. Hospitalist paged again.
[2020-03-21 06:54] LABS: Calcium 7.9 mg/dL (8.5-10.1); Potassium 3.8 mmol/L (3.5-5.1)
--- NOTE | 2020-03-21 07:05 | NUR ---
Patient facial twitching returned. Patient Alert, moving extremities and watching television, sitter bedside. Hospitalist paged. Will relay to day shift RN.
[2020-03-21 07:06] LABS: Red Cell Distribution Width 20.4 % (11.8-14.3)
--- NOTE | 2020-03-21 08:02 | NUR ---
Opening Shift Note Assumed care of patient, asleep but easily aroused. No S/S of distress/SOB or pain. No facial twitching seen. Will follow up with instructions on POC and to call for assist PRN, will continue to monitor for changes Q1hr and PRN. Sitter at bedside for safety.
[2020-03-21 10:31] VITALS: BP 112/66
[2020-03-21 13:20] VITALS: BP 96/64
--- NOTE | 2020-03-21 16:48 | NUR ---
SWALLOW EVALUATED. PATIENT HAS NATURAL TEETH. ABLE TO FOLLOW SINGLE COMMANDS. ANIMAL CYTOLOGIST TRANSLATED [place] AND CITIZEN OF [place]. PATIENT ABLE TO TOLERATE PUREE DIET TEXTURE WITH THIN LIQUIDS WITH NO OVERT SIGNS OR SYMPTOMS OF ASPIRATION. NURSING NOTIFIED.
[2020-03-21 16:52] VITALS: BP 104/70
--- NOTE | 2020-03-21 19:20 | NUR ---
Opening shift note Assumed care of patient who is lying down watching television. Noted slight tremors to head at this time. Patient is Alert but not responding to questions or making eye contact. Respirations even and non-labored with no s/s of distress at this time. Rivas patent draining clear yellow urine. Sitter bedside. Bed in lowest locked position with 2 side rails up. Call light with patient, will continue to monitor.
[2020-03-21 22:00] VITALS: BP 113/55
--- NOTE | 2020-03-21 22:01 | NUR ---
IV insertion/Removal IV access obtained, via clean sterile technique by inserting 20 gauge catheter at the left FA after 1 attempt. IV secured properly. No trauma to site. Patient tolerated well. Removed IV to right hand due to leaking. Catheter intact, applied pressure dressing, patient tolerated well.
--- NOTE | 2020-03-21 23:58 | NUR ---
Patient tremors no longer visible Patient sleeping with respirations even and non-labored with no s/s of distress. Sitter bedside. Will continue to monitor.
[2020-03-22] MEDS: PHENYTOIN SODIUM 50 MG/ML 2ML VIAL IV SCH ×3 (05:15→21:49)
[2020-03-22 05:27] VITALS: BP 122/42
[2020-03-22 06:52] LABS: Basophils # (auto) 0 10 ^3/uL (0-0.2); Basophils % (auto) 0.5 % (0.0-2.0); Eosinophils # (auto) 0.2 10 ^3/uL (0-0.8); Eosinophils % (auto) 6.2 % (0.0-7.0); Hematocrit 32.2 % (41.0-53.0); Hemoglobin 10.4 g/dL (13.5-17.5); Lymphocytes # (auto) 0.7 10 ^3/uL (0.4-5.4); Lymphocytes % (auto) 27.8 % (10.0-50.0); Mean Corpuscular Hemoglobin 30.2 pg (28.0-32.0); Mean Corpuscular Hgb Conc. 32.3 g/dL (32.0-36.0); Mean Corpuscular Volume 93.5 fL (80.0-100.0); Monocytes # (auto) 0.3 10 ^3/uL (0-1.3); Monocytes % (auto) 12.6 % (0.0-12.0); Neutrophils # (auto) 1.4 10 ^3/uL (1.6-8.6); Neutrophils % (auto) 52.9 % (37.0-80.0); Platelet Count (auto) 78 10^3/uL (140-450); Red Blood Cells 3.45 10^6/uL (4.5-5.90); White Blood Cell 2.7 10^3/uL (4.4-10.8)
[2020-03-22 07:01] LABS: Red Cell Distribution Width 20.7 % (11.8-14.3)
[2020-03-22 07:05] LABS: Potassium 3.9 mmol/L (3.5-5.1)
[2020-03-22 07:17] LABS: BUN/Creatinine Ratio 10.5; Calcium 7.9 mg/dL (8.5-10.1)
[2020-03-22 09:00] VITALS: BP 120/71
[2020-03-22] MEDS: LORazepam 2MG/ML-1ML VIAL IV PRN (12:00)
[2020-03-22 13:00] VITALS: BP 133/76
--- NOTE | 2020-03-22 14:54 | NUR ---
PT BITING ON LIPS AND GRINDING TEETH, NOTED BLOOD IN MOUTH AND LIPS. DR TAYLOR. 1:1 SITTER AT BEDSIDE. CONTINUING TO MONITOR PT CLOSELY.
[2020-03-22 16:41] VITALS: BP 99/55
[2020-03-22] MEDS: HYDROcodone-ACET 5/325MG TAB PO PRN ×2 (17:59→22:15)
--- NOTE | 2020-03-22 19:30 | NUR ---
Opening Shift Note Assumed care of patient, awake and alert, but unalbe to fully assess. Sounded as if pt may have stated his own name when RN asked, but speech garbled and in Colombian. No S/S of distress/SOB or pain. Lips presenting with what appears to be bite blood which had sealed closed. Pt rubbing head and frowning. Insructed on POC and to call for assist PRN; this RN will continue to monitor for changes Q1hr and PRN. Sitter in room. Bed low with HOB in semi-Bautista's position. Call light at pt's side.
--- NOTE | 2020-03-22 20:12 | NUR ---
Pt wheeling self downstairs to go smoke. This RN explained to pt risks of smoking; pt VU and signed AMA form. Tele room notified that pt will be outside smoking. Addendum: 03/23/20 at 0126 by INGE SARABIA RN Above note unintentionally entered on wrong pt.
[2020-03-22 22:00] VITALS: BP 108/60
[2020-03-23 05:00] VITALS: BP 106/64
[2020-03-23] MEDS: PHENYTOIN SODIUM 50 MG/ML 2ML VIAL IV SCH ×3 (06:33→21:43)
[2020-03-23 09:00] VITALS: BP 127/71
[2020-03-23 13:00] VITALS: BP 115/66
[2020-03-23] MEDS: LORazepam 2MG/ML-1ML VIAL IV PRN ×2 (13:26→21:21)
--- NOTE | 2020-03-23 13:49 | NUR ---
Nutrition Followup Notes Wt: 73.6 kg Pt was sleeping with no relatives at bedside when rounded this morning. Pt is with a Pureed diet with adequate PO of 100% x 4 per RN doc Est energy needs 8883-8200 kcal (25-27 kcal/kg BW 75.9kg), Est protein needs 61-76g (0.8-1g/kg BW 75.9kg). Will reassess prn LABS: CA 7.9 L. GI: Pt has no record of a BM since 03/14 per RN doc BS: 16 mod risk Refer to wound assessment report for full details. PES: Overweight r/t caloric intake in excess of needs aeb pt with a BMI of 25.4kg/m2 Comments 1) Continue to monitor pt po intake, labs, skin . 2) refer pt to [facility] on DC . 3) Continue current plan of care. F/u mod 3-5 days
[2020-03-23 17:02] VITALS: BP 121/70
[2020-03-23 21:20] VITALS: BP 125/81
--- NOTE | 2020-03-24 03:52 | NUR ---
Opening Shift Note Assumed care of patient, sleeping soundly on side. No S/S of distress/SOB or pain. Pt physically resistant to being disturbed from sleep for assessment. RN will continue to monitor for changes Q1hr and PRN. Bed low. Sitter in room. Nurse call light by pt's side.
[2020-03-24 05:07] VITALS: BP 118/71
[2020-03-24 05:32] LABS: Basophils # (auto) 0 10 ^3/uL (0-0.2); Eosinophils # (auto) 0.1 10 ^3/uL (0-0.8); Monocytes # (auto) 0.5 10 ^3/uL (0-1.3); White Blood Cell 4.1 10^3/uL (4.4-10.8)
[2020-03-24 05:34] LABS: Basophils % (auto) 0.8 % (0.0-2.0); Eosinophils % (auto) 3.6 % (0.0-7.0); Hematocrit 35.8 % (41.0-53.0); Hemoglobin 11.3 g/dL (13.5-17.5); Lymphocytes # (auto) 1.3 10 ^3/uL (0.4-5.4); Lymphocytes % (auto) 31.5 % (10.0-50.0); Mean Corpuscular Hemoglobin 30.5 pg (28.0-32.0); Mean Corpuscular Hgb Conc. 31.5 g/dL (32.0-36.0); Mean Corpuscular Volume 96.9 fL (80.0-100.0); Monocytes % (auto) 11.5 % (0.0-12.0); Neutrophils # (auto) 2.1 10 ^3/uL (1.6-8.6); Neutrophils % (auto) 52.6 % (37.0-80.0); Platelet Count (auto) 92 10^3/uL (140-450)
[2020-03-24 05:35] LABS: Red Cell Distribution Width 21.5 % (11.8-14.3)
[2020-03-24 05:51] LABS: BUN/Creatinine Ratio 13.2; Calcium 8.3 mg/dL (8.5-10.1)
[2020-03-24] MEDS: PHENYTOIN SODIUM 50 MG/ML 2ML VIAL IV SCH ×3 (05:51→22:36)
--- NOTE | 2020-03-24 08:26 | NUR ---
RECEIVED CRITICAL LAB VALUE FROM LAB: GLUCOSE 48. FINGERSTICK 54, 48. PT SITTING UP IN BED, TALKING AND INTERACTING APPROPRIATELY. VSS. DRINKING ORANGE JUICE. HOSPITALIST PAGED AT THIS TIME. Addendum: 03/24/20 at 0858 by CHICHO GASCA RN ABOVE NOTE WRITTEN ON WRONG PATIENT!
[2020-03-24 09:00] VITALS: BP 122/78
[2020-03-24] MEDS: HYDROcodone-ACET 5/325MG TAB PO PRN (10:34)
--- NOTE | 2020-03-24 14:04 | NUR ---
EEG COMPLETED AT BEDSIDE. PRIMARY RN CHICHO TAYLOR.
[2020-03-24 18:11] VITALS: BP 120/84
--- NOTE | 2020-03-24 19:10 | NUR ---
Opening Shift Note Assumed care of patient, awake and with garbled speech. No S/S of distress/SOB or pain. Pt physically resistant to being disturbed from sleep for assessment. RN will continue to monitor for changes Q1hr and PRN. Bed low. Sitter in room. Nurse call light by pt's side.
[2020-03-24 20:00] VITALS: BP 145/72
[2020-03-24 22:00] VITALS: BP 145/72
--- NOTE | 2020-03-25 02:43 | NUR ---
Received Report From Miroslava HANLEY to assume care for remainder of NOC shift. Patient is AOx1 and responds to name. Patient is laying supine in bed w/ HOB at 30 degrees, bed locked in lowest position. No s/s of distress or SOB. No pain noted. Will continue to monitor.
--- NOTE | 2020-03-25 02:43 | NUR ---
Report given to TALON Lantigua. Patient is resting in bed with eyes closed, no distress noted. Sitter at bedside.
[2020-03-25 05:00] VITALS: BP 132/62
[2020-03-25] MEDS: PHENYTOIN SODIUM 50 MG/ML 2ML VIAL IV SCH ×3 (05:53→21:53)
--- NOTE | 2020-03-25 07:00 | NUR ---
Care endorsed to Day Shift RN.
--- NOTE | 2020-03-25 07:40 | NUR ---
Opening Note Assumed pt care from NOC RN. PT is a/ox1; pt responds to name, but has difficulty answering questions and following commands. Sitter is present in room for safety. Rivas is present, free of kinks and is draining to gravity. Safety measures maintained with call light within reach, bed in lowest position and side rails up. Will continue to monitor for changes.
[2020-03-25 09:00] VITALS: BP 138/70
--- NOTE | 2020-03-25 09:49 | NUR ---
Dr Segundo to see Pt MD to see pt. No new orders at this time. Will continue to monitor.
[2020-03-25 13:00] VITALS: BP 129/70
[2020-03-25 17:00] VITALS: BP 128/75
--- NOTE | 2020-03-25 19:00 | NUR ---
Opening Shift Note received report form TALON Merritt and assumed care of patient. pt AAOx1 to self. No S/S of distress/SOB or pain. RN will continue to monitor for changes Q1hr and PRN. Bed in lowest and locked position with rails up x4 with seizure pads in place for pt's protection per protocol. Sitter in room, call light within reach.
[2020-03-25 22:00] VITALS: BP 118/84
--- NOTE | 2020-03-25 23:00 | NUR ---
pt attempted to GOOB, CESSATION SYSTEMS OUTREACH SPECIALIST was able to get to pt before pt could exit bed. pt is confused and did not remember she was in the hospital, per pt statement. bed in lowest and locked position with rails up x2. call light within reach an dpt was reeducated to use of call light for assistance. Addendum: 03/26/20 at 0414 by CORIE LUQUE RN RN wrong pt. disregard note please.
--- NOTE | 2020-03-26 01:30 | NUR ---
pt attempted to GOOB again, CALCULATING MACHINE MECHANIC was able to get to pt before pt could exit the bed. bed alarm on, bed in lowest and locked position with rails up x2. pt reminded to use call light for assistance. Addendum: 03/26/20 at 0420 by CORIE LUQUE RN RN wrong pt, please disregard note.
--- NOTE | 2020-03-26 02:45 | NUR ---
pt was heard yelling by NUCLEAR MEDICINE PET CT TECHNOLOGIST, when assessed pt stated she was hearing people yelling and threatening her. pt was reassured by NUCLEAR MEDICINE PET CT TECHNOLOGIST and nurse that there was no one yelling in the hallway and that she was safe. pt relaxed and went back to sleep. bed is in lowest and locked position with rails up x3, bed alarm on and call light within reach of pt. pt reminded to use call light for assistance. Addendum: 03/26/20 at 0419 by CORIE LUQUE RN RN wrong pt, please disregard note.
--- NOTE | 2020-03-26 03:45 | NUR ---
pt attempted to GOOB once more and was redirected to lay back in bed and pt complied agreeably. charge nurse was notified of pt's attempts to GOOB and the progression of confusion. pt has been moved closer to the nurse's station. bed alarm is on, bed is in lowest and locked position with rails up x3, call light is within reach of pt and pt has been reminded to use her call light when in need of assistance. Addendum: 03/26/20 at 0417 by CORIE LUQUE RN RN wrong pt, please disregard note.
--- NOTE | 2020-03-26 04:15 | NUR ---
wrong pt, disregard note please.
--- NOTE | 2020-03-26 04:17 | NUR ---
wrong pt, disregard note please
[2020-03-26 05:00] VITALS: BP 137/77
[2020-03-26] MEDS: PHENYTOIN SODIUM 50 MG/ML 2ML VIAL IV SCH ×3 (06:55→22:02)
--- NOTE | 2020-03-26 07:19 | NUR ---
Opening Note Assumed pt care from ISELA RN. Pt is a/ox1-2; pt is able to answer some questions and responds to name. Pt is currently laying in bed with no complaints at this time. Upon assessment, mild redness and warmness noted to both of pt's upper extremities. Pt denies any pain. Will continue to monitor. Discussed POC with pt. Evelyn is present, free of kinks and is draining to gravity. Safety measures maintained with call light within reach, bed in lowest position and side rails up. Bed alarm is on. Will continue to monitor for changes.
--- NOTE | 2020-03-26 07:20 | NUR ---
hand off given to TALON Phipps.
[2020-03-26 08:17] LABS: Basophils # (auto) 0 10 ^3/uL (0-0.2); Basophils % (auto) 0.3 % (0.0-2.0); Eosinophils # (auto) 0.2 10 ^3/uL (0-0.8); Eosinophils % (auto) 2.6 % (0.0-7.0); Hematocrit 34.4 % (41.0-53.0); Hemoglobin 11.2 g/dL (13.5-17.5); Lymphocytes # (auto) 0.9 10 ^3/uL (0.4-5.4); Lymphocytes % (auto) 12.7 % (10.0-50.0); Mean Corpuscular Hemoglobin 29.8 pg (28.0-32.0); Mean Corpuscular Hgb Conc. 32.6 g/dL (32.0-36.0); Mean Corpuscular Volume 91.4 fL (80.0-100.0); Monocytes # (auto) 0.7 10 ^3/uL (0-1.3); Monocytes % (auto) 9.6 % (0.0-12.0); Neutrophils # (auto) 5.1 10 ^3/uL (1.6-8.6); Neutrophils % (auto) 74.8 % (37.0-80.0); Nucleated Red Blood Cells % 0.1 %; Platelet Count (auto) 97 10^3/uL (140-450); Red Blood Cells 3.77 10^6/uL (4.5-5.90); White Blood Cell 6.9 10^3/uL (4.4-10.8)
[2020-03-26 08:42] LABS: Calcium 8.1 mg/dL (8.5-10.1); Potassium 3.6 mmol/L (3.5-5.1)
[2020-03-26 08:45] LABS: BUN/Creatinine Ratio 8.7
[2020-03-26 08:55] LABS: Red Cell Distribution Width 20.6 % (11.8-14.3)
[2020-03-26 09:00] VITALS: BP 132/94
--- NOTE | 2020-03-26 09:45 | NUR ---
Confusion Pt experienced a period of confusion, attempting to get out of bed and made it onto the floor; sitting. Not injury noted and pt is asymptomatic. Placed pt back into bed, provided frequent re-orientation. Bed alarm placed back on pt. Sitting is unavailable at this time, notified charge manager of need for sitter. Pt is close to nurses station, will continue to round frequently and continue to assess.
--- NOTE | 2020-03-26 11:17 | NUR ---
Dr Dexter to See Pt MD to see pt. New orders given. Will implement and continue to monitor.
[2020-03-26] MEDS ORDERED: ENOXAPARIN SOD 40 MG/0.4 ML SYRINGE SC ONE (11:30)
--- NOTE | 2020-03-26 12:15 | NUR ---
Nutrition Followup Notes Wt: 72.2 kg Pt was sleeping with no relatives at bedside when rounded this morning. Pt is with a 2 gm Pureed diet with adequate PO of 100% x 4 per RN doc Est energy needs 8360-8722 kcal (25-27 kcal/kg BW 75.9kg), Est protein needs 61-76g (0.8-1g/kg BW 75.9kg). Will reassess prn LABS: CA 8.3 L. GI: Pt had 1 BM 03/25 per RN doc BS: 20 low risk Refer to wound assessment report for full details. PES: Overweight r/t caloric intake in excess of needs aeb pt with a BMI of 25.4kg/m2 Comments: Continue to monitor pt po intake, labs, skin. F/u mod 3-5 days Rec: 1) refer pt to [facility]PD on DC . 2) Continue current plan of care.
[2020-03-26 13:00] VITALS: BP 153/85
--- NOTE | 2020-03-26 15:46 | NUR ---
Cooling Measures Pt noticeably warm to touch. Temp is 99.1, cooling measures initiated with cooling the room and ice packs. Will continue to monitor.
--- NOTE | 2020-03-26 17:26 | NUR ---
Dr Franklin at Bedside MD to see pt. No new orders at this time. Per MD, pt is more awake, but still confused and incoherent. Will continue to monitor.
--- NOTE | 2020-03-26 19:14 | NUR ---
RECEIVED PATIENT FROM DAY SHIFT RN. PATIENT RESTING IN BED. NO S/S OF DISTRESS NOTED. DENIED PAIN FOR NOW. REORIENTED PATIENT TIME, PLACE, AND SITUATION. REORIENTED NEEDED. POC INSTRUCTED AND ENCOURAGED PATIENT TO CALL FOR HOME AID IF NEEDED. BED IN LOWEST POSITION WITH SIDE RAILS UP X 2. CALL CALVO WITHIN REACH. ALARM ON. SITTER AT BEDSIDE FOR SAFETY. CONTINUE TO MONITOR FOR CHANGES Q1H AND PRN.
[2020-03-26 22:00] VITALS: BP 134/93
--- NOTE | 2020-03-27 01:18 | NUR ---
PATIENT SLEEPING. NO S/S OF DISTRESS NOTED. CONTINUE CARE.
[2020-03-27 05:00] VITALS: BP 117/95
--- NOTE | 2020-03-27 05:44 | NUR ---
IV insertion IV access obtained, via clean sterile technique by inserting [22] gauge catheter at [LW] after [1] attempt(s). IV secured properly. No trauma to site. Patient tolerated well. NOTE: []
[2020-03-27] MEDS: PHENYTOIN SODIUM 50 MG/ML 2ML VIAL IV SCH ×3 (05:45→21:57)
--- NOTE | 2020-03-27 07:20 | NUR ---
Opening Note Assumed pt care from NOC RN. Pt is a/ox1; alert and awake but confused and unaware of current situation. Rivas is present, free of kinks and is draining to gravity. Safety measures maintained with call light within reach, bed in lowest position, side rails up and bed alarm on. Will continue to monitor for changes and provide frequent re-orientation.
[2020-03-27 07:22] LABS: BUN/Creatinine Ratio 8.3; Calcium 8.2 mg/dL (8.5-10.1); Magnesium 1.5 mg/dL (1.6-2.6); Potassium 3.7 mmol/L (3.5-5.1)
[2020-03-27 09:00] VITALS: BP 128/68
[2020-03-27] MEDS: LACTULOSE 20Gm/30ML SOLN PO SCH ×2 (09:10→21:58)
[2020-03-27] MEDS: ENOXAPARIN SOD 40 MG/0.4 ML SYRINGE SC SCH (09:10)
[2020-03-27] MEDS: MAGNESIUM SULFATE 1GM/100ML 100 ML IV SCH ×3 (09:11→11:35)
--- NOTE | 2020-03-27 10:08 | NUR ---
Dr Dexter at Bedside MD to see pt. No new orders at this time. Will continue to monitor.
[2020-03-27 13:00] VITALS: BP 157/77
[2020-03-27 17:42] VITALS: BP 148/78
--- NOTE | 2020-03-27 19:37 | NUR ---
RECEIVED PATIENT FROM DAY SHIFT RN. PATIENT RESTING IN BED. NO S/S OF DISTRESS NOTED. DENIED PAIN FOR NOW. REORIENTED PATIENT TIME, PLACE, AND SITUATION. REORIENTED NEEDED. LFA RED AND HOT TO TOUCH. MD AWARE. POC INSTRUCTED AND ENCOURAGED PATIENT TO CALL FOR MATERIAL HANDLER LOADER IF NEEDED. BED IN LOWEST POSITION WITH SIDE RAILS UP X 2. CALL CALVO WITHIN REACH. ALARM ON. CONTINUE TO MONITOR FOR CHANGES Q1H AND PRN.
[2020-03-27 22:00] VITALS: BP 127/78
--- NOTE | 2020-03-27 22:00 | NUR ---
SCHEDULED ORAL MEDIATION GIVEN ORDERED. PATIENT SWALLOWED WELL. NO S/S OF ASPIRATION NOTED. CONTINUE TO MONITOR.
--- NOTE | 2020-03-27 23:30 | NUR ---
MD TONG AT BEDSIDE
--- NOTE | 2020-03-28 00:42 | NUR ---
PATIENT HAD BM. CLEANED PATIENT, TOTAL LINEN CHANGED. PATIENT TOLERATED WELL. CONTINUE TO MONITOR.
--- NOTE | 2020-03-28 03:29 | NUR ---
PATIENT SLEEPING. NO S/S OF DISTRESS NOTED. CONTINUE CARE.
[2020-03-28 05:00] VITALS: BP 149/85
--- NOTE | 2020-03-28 07:38 | NUR ---
receive patient from noc shift rn. Patient awake, repeating "you know" multiple times. Denies pain, but appears restless and tries to climb out of bed, requiring frequent redirection. Plan of care discussed, but patient unable to verbalized understanding. Bed in low and locked position, seizure precaution maintained with padded rails. Observed redness and swelling of left arm. Will continue to monitor q1hr and prn
[2020-03-28 08:00] VITALS: BP 137/86
[2020-03-28 09:00] VITALS: BP 137/86
[2020-03-28] MEDS: LACTULOSE 20Gm/30ML SOLN PO SCH ×2 (10:29→21:11)
[2020-03-28] MEDS: ENOXAPARIN SOD 40 MG/0.4 ML SYRINGE SC SCH (10:30)
[2020-03-28] MEDS: levETIRAcetam 500 MG TAB PO SCH ×2 (10:30→21:11)
--- NOTE | 2020-03-28 12:35 | NUR ---
Dr. Segundo at bedside, assessed swelling on left arm. New order: Tylenol 650mg Q4hr PRN for moderate pain Ordered Ultrasound of left arm to r/o abscess
[2020-03-28 13:00] VITALS: BP 148/87
--- NOTE | 2020-03-28 13:25 | NUR ---
sitter at bedside for safety.
[2020-03-28] MEDS: ACETAMINOPHEN 325 MG TAB PO PRN ×2 (14:40→23:51)
[2020-03-28 17:00] VITALS: BP 148/76
--- NOTE | 2020-03-28 20:00 | NUR ---
Opening Shift Note Assumed care of patient confused, awake and alert. No S/S of distress/SOB or pain. Instructed on POC and to call for assist PRN, will continue to monitor for changes Q1hr and PRN.With Rivas catheter in placed draining yellow urine output.Sitter at bedside.
[2020-03-28] MEDS: PHENYTOIN SODIUM 100 MG CAP PO SCH (21:11)
[2020-03-28 22:00] VITALS: BP 151/84
[2020-03-29 05:00] VITALS: BP 129/77
--- NOTE | 2020-03-29 07:24 | NUR ---
Care report given to Donavon Strong, patient is resting no distress.
[2020-03-29 08:34] VITALS: BP 118/87
--- NOTE | 2020-03-29 09:05 | NUR ---
OPENING SHIFT NOTE: PATIENT RESTING IN BED, ASLEEP EASILY AWOKEN. PER IVETH HAIR WHO IS COMORAN SPEAKING SHE SAYS THAT HE ISN'T MAKING SENSE WHEN HE TALKS. A/OX1, RESPIRATIONS EVEN AND UNLABORED. PABLO HUNG BELOW BLADDER FREE OF KINKS, SITTER AT BEDSIDE, WILL CONTINUE TO MONITOR.
[2020-03-29] MEDS: levETIRAcetam 500 MG TAB PO SCH ×2 (09:34→21:42)
[2020-03-29] MEDS: ENOXAPARIN SOD 40 MG/0.4 ML SYRINGE SC SCH (09:34)
[2020-03-29] MEDS: LACTULOSE 20Gm/30ML SOLN PO SCH ×2 (09:34→21:42)
[2020-03-29] MEDS: ACETAMINOPHEN 325 MG TAB PO PRN (09:35)
--- NOTE | 2020-03-29 10:31 | NUR ---
PT: PATIENT AMBULATING AROUND UNIT WITH PHYSICAL THERAPY.
[2020-03-29 13:30] VITALS: BP 116/75
--- NOTE | 2020-03-29 14:26 | NUR ---
Assessment Patient is confused unable to complete assessment. No family information on chart. Advised bedside RN Allie to contact me if family member calls regarding patient. Patient will be assess once patient is able to participate with discharge planning.
--- NOTE | 2020-03-29 14:56 | NUR ---
Nutrition Followup Notes Wt: 75.6 kg Pt`s confused when rounded this morning. Pt is with a 2 gm Pureed diet with adequate PO of > 75% x 4 per RN doc Est energy needs 2283-6256 kcal (25-27 kcal/kg BW 75.9kg), Est protein needs 45-61g (0.6-0.8g/kg BW 75.9kg). Will reassess prn. reassess as pt with elev ammonia LABS: CA 8.3 L, AMMONIA 42. H GI: Pt had 1 BM 03/28 per RN doc BS: 19 low risk Refer to wound assessment report for full details. PES: Overweight r/t caloric intake in excess of needs aeb pt with a BMI of 25.4kg/m2 Comments: Continue to monitor pt po intake, labs, skin. F/u mod 3-5 days Rec: 1) refer pt to [facility]PD on DC . 2) Consider Hepatic diet 50 gm protein along with current diet if ammonia continues to be elev. 3) Continue current plan of care.
--- NOTE | 2020-03-29 15:10 | NUR ---
re-assessment Patient is still confused and no family contact. I will continue to monitor and follow up as appropriate. Addendum: 03/29/20 at 1511 by Sandra QUIÑONES Amended: Links added.
--- NOTE | 2020-03-29 15:49 | NUR ---
Assessment Regarding social service consult for SNF placement. Patient is a 44-year-old male who is confused. Contacted [facility] located in [facility]. Per the public relations representative with [facility] patient run away and never came back to their facility and provided me with patient next of kin JUDITH Winter with the Department of health service . Placed called to JUDITH Winter with the department of health service regarding patient. JUDITH Winter advised me patient requested to go out with friends and left the facility on March 03, 2020 and never return to facility. Informed JUDITH Winter patient has been admitted since March. Per JUDITH Winter patient can return back to the facility upon discharge. Per JUDITH Winter they have a 30 day policy which patient can return back to [facility] and will be contacting her supervisor [employer] due to patient being out of area. Per JUDITH Winter she will contact me with updates. Addendum: 03/29/20 at 1605 by ROOSEVELT QUIÑONES Amended: Links added.
[2020-03-29 16:51] VITALS: BP 126/70
--- NOTE | 2020-03-29 18:50 | NUR ---
CARE ENDORSED TO NOC RN.
--- NOTE | 2020-03-29 20:00 | NUR ---
Opening Shift Note Assumed care of patient, awake and alert. No S/S of distress/SOB or pain. Instructed on POC and to call for assist PRN, will continue to monitor for changes Q1hr and PRN.Sitter at bedside.
[2020-03-29] MEDS: PHENYTOIN SODIUM 100 MG CAP PO SCH (21:42)
[2020-03-29 21:52] VITALS: BP 120/85
[2020-03-30 05:01] VITALS: BP 116/74
--- NOTE | 2020-03-30 07:19 | NUR ---
Care report given to Donavon Hernandez, patient is resting no distress.
[2020-03-30 08:00] VITALS: BP 145/88
[2020-03-30] MEDS: levETIRAcetam 500 MG TAB PO SCH ×2 (10:14→21:47)
[2020-03-30] MEDS: ENOXAPARIN SOD 40 MG/0.4 ML SYRINGE SC SCH (10:14)
[2020-03-30] MEDS: LACTULOSE 20Gm/30ML SOLN PO SCH ×2 (10:14→21:47)
[2020-03-30 13:00] VITALS: BP 141/82
[2020-03-30 15:00] VITALS: BP 141/78
--- NOTE | 2020-03-30 19:30 | NUR ---
Opening Shift Note Assumed care of patient, awake and alert. Patient laying in bed. A&Ox1. Patient only aware of name. Sitter at bedside. No S/S of distress/SOB or pain. Safety measures maintained by keeping the bed locked in lowest position, 2 side rails up, personal items and call light within reach. Instructed on POC and to call for assist PRN, will continue to monitor for changes Q1hr and PRN.
[2020-03-30] MEDS: PHENYTOIN SODIUM 100 MG CAP PO SCH (21:47)
[2020-03-30 22:00] VITALS: BP 124/68
[2020-03-31 05:00] VITALS: BP 136/64
--- NOTE | 2020-03-31 05:00 | NUR ---
Received patient from [facility] TALON Jones. Patient in bed asleep with no signs of distress. Sitter at bedside for safety precaution.
[2020-03-31 09:00] VITALS: BP 116/71
[2020-03-31] MEDS: ENOXAPARIN SOD 40 MG/0.4 ML SYRINGE SC SCH (09:41)
[2020-03-31] MEDS: LACTULOSE 20Gm/30ML SOLN PO SCH ×2 (09:41→22:13)
[2020-03-31] MEDS: levETIRAcetam 500 MG TAB PO SCH ×2 (09:41→22:13)
[2020-03-31 13:00] VITALS: BP 137/80
--- NOTE | 2020-03-31 13:45 | NUR ---
D/C planning Received a follow up called from JUDITH Winter with the Department [employer] health service advising me patient [facility] [employer] [facility] will be able to assist with transportation home address [address] [place] [address]. Per JUDITH Winter upon discharge she will need the discharge summary to be faxed to her at .
[2020-03-31 16:41] VITALS: BP 125/71
--- NOTE | 2020-03-31 19:30 | NUR ---
Opening Shift Note Assumed care of patient, awake and alert. A&Ox1. Patient only oriented to name. No S/S of distress/SOB or pain. Safety measures maintained by keeping the bed locked in lowest position, 2 side rails up, personal items and call light within reach. Sitter at bedside and seizure precautions in place. Instructed on POC and to call for assist PRN, will continue to monitor for changes Q1hr and PRN.
[2020-03-31 22:00] VITALS: BP 141/79
[2020-03-31] MEDS: PHENYTOIN SODIUM 100 MG CAP PO SCH (22:13)
[2020-04-01 05:00] VITALS: BP 123/79
[2020-04-01 09:00] VITALS: BP 138/86
[2020-04-01] MEDS: LACTULOSE 20Gm/30ML SOLN PO SCH (09:41)
[2020-04-01] MEDS: ENOXAPARIN SOD 40 MG/0.4 ML SYRINGE SC SCH (09:42)
[2020-04-01] MEDS: levETIRAcetam 500 MG TAB PO SCH (09:42)
[2020-04-01] MEDS ORDERED: PHE100C PO (11:20)
[2020-04-01] MEDS ORDERED: KEP500T PO (11:20)
[2020-04-01 12:06] LABS: Basophils # (auto) 0 10 ^3/uL (0-0.2); Basophils % (auto) 0.9 % (0.0-2.0); Eosinophils # (auto) 0.3 10 ^3/uL (0-0.8); Eosinophils % (auto) 11.7 % (0.0-7.0); Hemoglobin 9.6 g/dL (13.5-17.5); Lymphocytes # (auto) 0.6 10 ^3/uL (0.4-5.4); Lymphocytes % (auto) 20.7 % (10.0-50.0); Mean Corpuscular Hemoglobin 30.2 pg (28.0-32.0); Mean Corpuscular Hgb Conc. 33.1 g/dL (32.0-36.0); Mean Corpuscular Volume 91.3 fL (80.0-100.0); Monocytes # (auto) 0.4 10 ^3/uL (0-1.3); Neutrophils # (auto) 1.5 10 ^3/uL (1.6-8.6); Neutrophils % (auto) 52.7 % (37.0-80.0); Platelet Count (auto) 92 10^3/uL (140-450); Red Blood Cells 3.18 10^6/uL (4.5-5.90); Red Cell Distribution Width 20.9 % (11.8-14.3); White Blood Cell 2.9 10^3/uL (4.4-10.8)
[2020-04-01 13:00] VITALS: BP 129/80
--- NOTE | 2020-04-01 14:18 | NUR ---
Nutrition Followup Notes Wt: 74.9 kg Pt was sleeping when rounded this morning. Pt is with a 2 gm Pureed diet with adequate PO of > 75% x 3 per RN doc Est energy needs 0375-6581 kcal (25-27 kcal/kg BW 75.9kg), Est protein needs 45-61g (0.6-0.8g/kg BW 75.9kg). Will reassess prn. reassess as pt with elev ammonia LABS: 03/27/20 labs: CA 8.2 L, Alb 2.6, Ammonia 42 H GI: Pt had 1 BM 03/31 per RN doc BS: 19 low risk Refer to wound assessment report for full details. PES: Overweight r/t caloric intake in excess of needs aeb pt with a BMI of 25.4kg/m2 Comments: Continue to monitor pt po intake, labs, skin. F/u mod 3-5 days Rec: 1) refer pt to [facility]PD on DC . 2) Consider Hepatic diet 50 gm protein along with current diet if ammonia continues to be elev. 3) Continue current plan of care.
--- NOTE | 2020-04-01 14:36 | NUR ---
re-assessment Patient is now discharged. I have faxed discharge paperwork to [employer] worker for patient . [employer] transportation has been contacted, I spoke with Shakira auth# [id number]. Home address [id number] [place] [id number]. Per Shakira transportation will call when they get here and patient must be ready. Terence HANLEY has been notified. Per [facility] patient has been accepted back to facility. Terence to call report to [phone]. Addendum: 04/01/20 at 1443 by Sandra QUIÑONES Amended: Links added.
--- NOTE | 2020-04-01 15:00 | NUR ---
Navas catheter dc'd Order to discontinue navas catheter. Navas dc'd with clean technique following deflation of balloon. Patient tolerated well with no complaints of pain. Continue care.
--- NOTE | 2020-04-01 15:29 | NUR ---
REPORT GIVEN TO TRISTAN, STAFF OF [facility] BY PHONE. [phone]. MENTIONED TO HER PATIENT NEW MEDICATIONS THAT MD PRESCRIBED AND THAT IT WILL BE FILLED AND SENT WITH PATIENT.
--- NOTE | 2020-04-01 16:00 | NUR ---
Patient voided per urinal at this tiime with no difficulty.
--- NOTE | 2020-04-01 17:42 | NUR ---
Discharge instructions given as ordered. Patient's prescribed medications sent with patient. Encourage to follow up with PMD as instructed. All questions and concerns addressed. Patient with questionable understanding Medication reconciliation form completed and copy given to patient. . IV removed with catheter intact, pressure dressing applied, navas catheter removed. Telemetry unit returned to ICU. Patient taken to [facility] transport vehicle via wheelchair with all personal belongings, accompanied by staff. No distress noted at time of departure.
== END 2020-04-01 17:45 | disposition home or self-care (01) | DRG 53 ==
LOC: ER 13:59 → EDBD 13:59 → TELE 14:00 → TELE-WESTW 03-14 11:35
PROVIDERS: ADMIT Hospitalist; ATTEND Internal Medicine Pulmonary Disease
DX: G40.901 Epilepsy, unspecified, not intractable, with status epilepticus (principal); K70.30 Alcoholic cirrhosis of liver without ascites; D68.9 Coagulation defect, unspecified; E83.42 Hypomagnesemia; D61.818 Other pancytopenia; E51.2 Wernicke's encephalopathy; M79.89 Other specified soft tissue disorders; Z20.828 Contact with and (suspected) exposure to other viral communicable diseases; Z59.0 Homelessness; Z91.14 Patient's other noncompliance with medication regimen; F10.26 Alcohol dependence with alcohol-induced persisting amnestic disorder; Y90.0 Blood alcohol level of less than 20 mg/100 ml
CPT/HCPCS: 36415; 51702; 70450; 71045; 72125; 76700; 76881; 80048; 80053; 80061; 80185; 80307; 80320; 81001; 82140; 82542; 82962; 83036; 83735; 84439; 84443; 85025; 85610; 85730; 87086; 92610; 93005; 95819; 96361; 96365; 96367; 96375; 97116; 97163; 97530; G0378; J0131; J0610; J2405; J3480; J7060